=== PATIENT | male | born 1960 | race Caucasian/White ===

== ENCOUNTER 2017-11-10 16:15 | Outpatient (RCR) | payer OTHER ==
--- NOTE | 2017-11-03 13:07 | PT INITIAL EVALUATION ---
MEDICAL DIAGNOSIS: Dizziness TREATMENT DIAGNOSIS: BPPV, Vertigo DATE OF ONSET: 11/02/17 SUBJECTIVE: Desean is a 57 year-old male presenting to physical therapy following a 2 year history of occasional dizziness and vertigo. Pt reports that sometimes it it positionally related, but other times it can occur simply at rest. Pt occasionally has a ringing in his L ear as well. Pt reports that overall the dizziness comes and goes, but increases with activities such as tying shoes. He reports no nausea with dizziness. REHAB PROBLEM LIST: Impaired Transfers Decreased Balance Decreased ADL's Decreased Mobility PREVIOUS MEDICAL HISTORY: See EMR OBJECTIVE: Visual tracking intact without nystagmus. Pt has no nystagmus at rest. Sensation: No change in facial sensation Special Tests: Vertebral Artery test B (-) Mobility: Dizziness with transfers from supine<>seated Gait: No abnormality of gait or slowed speed. Balance: [place] Hallpike R (-), L (+) Other Objective Findings: Dizziness Handicap Inventory (DHI): ASSESSMENT: Pt shows signs and symptoms consistent with left sided BPPV. Physical therapy is indicated to treat the above listed deficits to improve pt function with ADL's. Short Term Goals In 2 weeks pt will have no reports of dizziness with changed in position or ADL 's. In 2 weeks pt will improve DHI score to 8 or less for improved functional ability to perform ADL's. Patient's Goals Decrease dizziness PLAN: Patient to be seen for Spinal Stabilization Neuromuscular Re-ed Posture/Body mechanics Gait Trg/Balance Trg Home Exercise Program Therapeutic Activities 1x/Week for 2-4 Weeks If you have any questions, comments, or concerns about this report or plan, please contact me at . Thank you, Gay Hardy, PT, DPT, CLT MTDD
[~2017-11-10 16:15] MED LIST: ASPI-1471 PO; MECL25TA9 PO; METO-257 PO; METO25TA93 PO; MOMR ENA; RIVA20TA PO
--- NOTE | 2017-11-10 16:59 | PT PLAN OF CARE ---
Physician: SANTOSH Whitman Patient is being seen: 1x/Week Therapist: Gay Hardy, PT, DPT, CLT Medical Diagnosis: Dizziness Treatment Diagnosis: BPPV, Vertigo Date of Onset: 11/02/17 Date of Initial Evaluation: 11/02/17 Date patient was last seen: 11/10/17 Number of treatments: 2 Number of cancellations/No shows: 0 INTERVENTIONS: Spinal Stabilization Neuromuscular Re-ed Posture/Body mechanics Gait Trg/Balance Trg Home Exercise Program Therapeutic Activities GOALS: In 2 weeks pt will have no reports of dizziness with changed in position or ADL' s. In 2 weeks pt will improve DHI score to 8 or less for improved functional ability to perform ADL's. PATIENT'S GOAL: Decrease dizziness Status of Patient's Goals: 2/2 MET Patient Compliance: Excellent Prognosis: Good Reasons for discharge from therapy: Desean is to discharge from physical therapy at this time secondary to completion of 2/2 functional goals. At the time of discharge pt reports no dizziness with ADL's except occasional onset of dizziness with quick lateral head movements which resolves quickly. Pt is compliant with HEP and is to follow up with PT if any further symptoms arise. Sensation: No change in facial sensation Special Tests: Vertebral Artery test B (-) Gait: No abnormality of gait or slowed speed. Other Objective Findings: Dizziness Handicap Inventory (DHI): If you have any questions, comments, or concerns about this report or plan, please contact me at . Thank you, Gay Hardy, PT, DPT, CLT [facility]
== END 2017-11-10 18:00 | disposition home or self-care (01) ==
LOC: PT 16:15
PROVIDERS: ATTEND Physician Assistant Medical
DX: H81.10 Benign paroxysmal vertigo, unspecified ear (principal); H93.12 Tinnitus, left ear
CPT/HCPCS: 97161

== ENCOUNTER 2018-05-04 20:55 | Emergency (ER) | payer OTHER ==
--- NOTE | 2018-05-04 20:58 | ER Report ---
History and Physical Time Seen By MD: 20:56 HPI/ROS CHIEF COMPLAINT: Palpitations, chest ache HISTORY OF PRESENT ILLNESS: 57-year-old male with a brief episode of palpitations at 6 PM. Later developed chest ache. Without associated symptoms. Patient denies diaphoresis, shortness of breath or nausea. Patient has a known history of atrial fibrillation back in 2013. Patient was seen in 2016 with atrial fibrillation. He was started on metoprolol and Xarelto. Patient spontaneously converted. He is followed by cardiology in [place]. Patient remains on metoprolol 50 mg twice a day and aspirin 81 mg per day. Patient notes no recent illness, URI cough sore throat fever or chills. Patient denies leg swelling or calf pain. Patient notes no exacerbating or alleviating factors. This chest pain. He denies GERD symptoms. REVIEW OF SYSTEMS: Respiratory: No cough, no dyspnea. Cardiovascular: As above Gastrointestinal: No vomiting, no abdominal pain. Musculoskeletal: No back pain. Allergies: Coded Allergies: No Known Drug Allergies (Unverified , 05/04/18) Home Meds Reported Medications Aspirin (ASPIR 81) 81 Mg Tablet.dr, 81 MG PO QDAY, TAB 05/04/18 Metoprolol Tartrate (METOPROLOL TARTRATE) 25 Mg Tablet, 1 TAB PO QDAY, TAB 09/20/15 Reviewed Nurses Notes: Yes Old Medical Records Reviewed: Yes Hx Smoking: No Smoking Status: Never Smoker Exposure to Second Hand Smoke?: No Constitutional Vital Sign - Last 24 Hours 05/04/18 05/04/18 05/04/18 05/04/18 20:57 21:00 21:17 21:30 Temp 97.8 Pulse 90 87 75 73 Resp 16 32 14 B/P (MAP) 136/107 149/98 (115) 124/88 (100) 118/77 (91) Pulse Ox 95 94 92 92 O2 Delivery Room Air Physical Exam Vital signs stable, afebrile, pulse ox normal General Appearance: The patient is alert, has no immediate need for airway protection and no current signs of toxicity. Skin warm, dry, pink HEENT: Pupils equal and round no injection. Respiratory: Chest is non tender, lungs are clear to auscultation., Mild chest wall tenderness with firm compression Cardiac: regular rate and rhythm Gastrointestinal: Abdomen is soft and non tender, no masses, bowel sounds normal. Musculoskeletal: Neck: Neck is supple and non tender. Extremities have full range of motion and are non tender. No edema, no calf tenderness Skin: No rashes or lesions. DIFFERENTIAL DIAGNOSIS: After history and physical exam differential diagnosis was considered for chest pain including but not limited to myocardial ischemia, pericarditis pulmonary embolus, chest wall pain, pleural inflammation and pulmonary infectious causes. Medical Decision Making Data Points Result Diagram: 05/04/18210405/04/182104 Laboratory Hematology Test 05/04/18 21:05 Red Blood Count 5.25 M/uL (4.00-5.60) Mean Corpuscular Volume 89.9 fL (80.0-96.0) Mean Corpuscular Hemoglobin 31.7 pg (26.0-33.0) Mean Corpuscular Hemoglobin Concent 35.3 g/dL (32.0-36.0) Red Cell Distribution Width 13.0 % (11.5-14.5) Mean Platelet Volume 9.0 fL (7.2-11.1) Neutrophils (%) (Auto) 48.4 % (39.4-72.5) Lymphocytes (%) (Auto) 36.4 % (17.6-49.6) Monocytes (%) (Auto) 11.4 % (4.1-12.4) Eosinophils (%) (Auto) 2.6 % (0.4-6.7) Basophils (%) (Auto) 1.2 % (0.3-1.4) Nucleated RBC Relative Count (auto) 0.0 /100WBC Neutrophils # (Auto) 3.6 K/uL (2.0-7.4) Lymphocytes # (Auto) 2.7 K/uL (1.3-3.6) Monocytes # (Auto) 0.8 K/uL (0.3-1.0) Eosinophils # (Auto) 0.2 K/uL (0.0-0.5) Basophils # (Auto) 0.1 K/uL (0.0-0.1) Nucleated RBC Absolute Count (auto) 0.00 K/uL D-Dimer Quantitative (PE/DVT) < 0.27 ug/ml (0-0.50) Sodium Level 139 mmol/L (137-145) Potassium Level 4.0 mmol/L (3.5-5.0) Chloride Level 105 mmol/L (98-107) Carbon Dioxide Level 25 mmol/L (22-30) Blood Urea Nitrogen 18 mg/dl (9-21) Creatinine 1.30 mg/dl (0.66-1.25) Glomerular Filtration Rate Calc 57.3 Random Glucose 86 mg/dl (75-110) Calcium Level 8.9 mg/dl (8.4-10.2) Total Bilirubin 1.5 mg/dl (0.2-1.3) Aspartate Amino Transf (AST/SGOT) 25 U/L (0-35) Alanine Aminotransferase (ALT/SGPT) 31 U/L (0-56) Alkaline Phosphatase 106 U/L (0-126) Troponin I < 0.012 ng/ml Total Protein 7.1 g/dl (6.3-8.2) Albumin 4.0 g/dl (3.5-5.0) Chemistry Test 05/04/18 21:05 White Blood Count 7.3 k/uL (4.5-11.0) Red Blood Count 5.25 M/uL (4.00-5.60) Hemoglobin 16.7 g/dL (14.0-18.0) Hematocrit 47.2 % (42.0-52.0) Mean Corpuscular Volume 89.9 fL (80.0-96.0) Mean Corpuscular Hemoglobin 31.7 pg (26.0-33.0) Mean Corpuscular Hemoglobin Concent 35.3 g/dL (32.0-36.0) Red Cell Distribution Width 13.0 % (11.5-14.5) Platelet Count 218 K/uL (150-450) Mean Platelet Volume 9.0 fL (7.2-11.1) Neutrophils (%) (Auto) 48.4 % (39.4-72.5) Lymphocytes (%) (Auto) 36.4 % (17.6-49.6) Monocytes (%) (Auto) 11.4 % (4.1-12.4) Eosinophils (%) (Auto) 2.6 % (0.4-6.7) Basophils (%) (Auto) 1.2 % (0.3-1.4) Nucleated RBC Relative Count (auto) 0.0 /100WBC Neutrophils # (Auto) 3.6 K/uL (2.0-7.4) Lymphocytes # (Auto) 2.7 K/uL (1.3-3.6) Monocytes # (Auto) 0.8 K/uL (0.3-1.0) Eosinophils # (Auto) 0.2 K/uL (0.0-0.5) Basophils # (Auto) 0.1 K/uL (0.0-0.1) Nucleated RBC Absolute Count (auto) 0.00 K/uL D-Dimer Quantitative (PE/DVT) < 0.27 ug/ml (0-0.50) Glomerular Filtration Rate Calc 57.3 Calcium Level 8.9 mg/dl (8.4-10.2) Total Bilirubin 1.5 mg/dl (0.2-1.3) Aspartate Amino Transf (AST/SGOT) 25 U/L (0-35) Alanine Aminotransferase (ALT/SGPT) 31 U/L (0-56) Alkaline Phosphatase 106 U/L (0-126) Troponin I < 0.012 ng/ml Total Protein 7.1 g/dl (6.3-8.2) Albumin 4.0 g/dl (3.5-5.0) Coagulation Test 05/04/18 21:05 D-Dimer Quantitative (PE/DVT) < 0.27 ug/ml EKG/Imaging EKG Interpretation 12 lead EK Rhythm: normal sinus rhythm [place]: normal QRS: normal ST segments: normal, comparison to previous EKG dated 06/21/16, no significant change Imaging X-ray: Two-view chest x-ray was obtained. I viewed the images myself on the PACS system. My interpretation of the images is: No infiltrate, no effusion, normal mediastinum, comparison to previous chest x-ray dated 07/04/14. [The radiologist interpretation had no clinically significant variation from this interpretation]. ED Course/Re-evaluation Clinical Indication for ER IV: IV Access ED Course Patient was admitted to an examination room. H&P was done. The differential diagnosis was considered. On clinical examination. Patient has some reproducible chest pain. Patient has no associated symptoms. He sounds like he might of been briefly in atrial fibrillation earlier this evening. Patient's is been taking his aspirin 81 mg per day. His rate controlled on the awake overnight monitor. An EKG is performed which is unremarkable and normal. Compared to old EKG is unchanged. Patient's troponin and d-dimer were unremarkable. His chest x-rays and change. Patient has no symptoms currently. Patient was worried he may be having a cardiac event. Patient advised to follow-up with his primary care or ordained minister if his symptoms persist. Decision to Disposition Date: May 04, 2018 Decision to Disposition Time: 21:40 Depart Departure Latest Vital Signs Vital Signs Date Time Temp Pulse Resp B/P (MAP) Pulse Ox O2 Delivery O2 Flow Rate FiO2 05/04/18 21:30 73 14 118/77 (91) 92 05/04/18 20:57 97.8 Room Air Impression: Primary Impression: Chest pain Condition: Improved Disposition: HOME OR SELF-CARE Patient Instructions: Chest Pain (ED) Additional Instructions: Follow-up with your primary care or your ordained minister if symptoms persist Return to the ER for any worsening Problem Qualifiers Primary Impression: Chest pain Chest pain type: unspecified Qualified Codes: R07.9 - Chest pain, unspecified MARY HOOVER DO May 04, 2018 20:58
[2018-05-04] MEDS ORDERED: ASPI-1471 PO (21:01)
--- NOTE | 2018-05-04 21:10 | EKG ---
FACILITY[place] [facility] [place]IENT NAME: RENETTA NIEVES : [id number] MR: [id number] V: [id number] EXAM DATE: ORDERING PHYSICIAN: MARY HOOVER TECHNOLOGIST: BIRDIE Test Reason : CARDIAC Blood Pressure : / mmHG Vent. Rate : 082 BPM Atrial Rate : 082 BPM P-R Int : 140 ms QRS Dur : 100 ms QT Int : 372 ms P-R-T Axes : 045 045 054 degrees QTc Int : 434 ms Normal sinus rhythm Normal ECG When compared with ECG of 21-JUN-2016 08:15, No significant change was found Confirmed by VERONIQUE PANCHAL ([id number]) on 05/05/2018 6:45:43 AM Referred By: Confirmed By:VERONIQUE PANCHAL
[2018-05-04 21:16] LABS: PLATELET COUNT, AUTOMATED 218 K/uL (150-450)
[2018-05-04 21:30] VITALS: BP 118/77
--- NOTE | 2018-05-04 21:37 | RADIOLOGY IMAGING REPORT ---
FACILITY: [facility] PATIENT NAME: Desean West : 1960 MR: [id number] V: [id number] EXAM DATE: ORDERING PHYSICIAN: MARY HOOVER TECHNOLOGIST: Location: Patient: Desean West : 1960 Visit/Account:[id number] Date of Sevice: 05/04/2018 TWO VIEW CHEST 05/04/2018 9:04 PM. INDICATION: Chest Pain COMPARISON: 07/04/2014. FINDINGS: Lungs are well-expanded. There is a new nodular density projecting over the left lung base on the PA image measuring 7 mm in diameter. Lungs are otherwise clear. No pneumothorax or pleural effusion. Pulmonary vasculature is unremarkable. Heart size is normal. IMPRESSION: Nonspecific 7 mm nodular density projecting over the left lung base. This could represen t overlapping shadows, but underlying parenchymal nodule or focal infection not excluded. Consider 1 -3 month follow-up versus further evaluation with CT. Otherwise unremarkable Report Dictated By: Eduardo Monahan MD at 05/04/2018 9:31 PM Report E-Signed By: Eduardo Monahan MD at 05/04/2018 9:34 PM WSN:[id number]
== END 2018-05-04 21:46 | disposition home or self-care (01) ==
LOC: ER 21:24
DX: R07.9 Chest pain, unspecified (principal)
CPT/HCPCS: 71046; 82040; 82247; 82310; 82374; 82435; 82565; 82947; 84075; 84132; 84155; 84295; 84450; 84460; 84484; 84520; 85025; 85379; 93005; 99284

== ENCOUNTER 2018-08-30 07:00 | Outpatient (RCR) | payer OTHER ==
--- NOTE | 2018-08-24 09:33 | PT INITIAL EVALUATION ---
MEDICAL DIAGNOSIS: BPPV TREATMENT DIAGNOSIS: Same DATE OF ONSET: 08/10/18 SUBJECTIVE: Desean West presents to physical therapy with complaints of dizziness and mild dull head ache that is consistent with head turning, looking up, and lay down quickly. He reports that he was in a mild snowboard accident in which he hit his head; however, he reports that he was wearing a helmet. He denies any loss of consciousness. He reports that he was treated for BPPV last October in which it got better quickly. REHAB PROBLEM LIST: Decreased Balance Decreased Function Decreased ADL's PREVIOUS MEDICAL HISTORY: See EMR OCCUPATION: [employer] OBJECTIVE: Special Tests: Special Tests: (-) OCULOMOTOR/VESTIBULAR TESTING: Spontaneous Nystagmus: Absent VOR Head Thrust (horizontal canal function): R: ?, L: ? (will test next session) Gaze-Evoked Nystagmus with fixation present:Absent VOR Head Thrust (posterior canal function): R: Positive, L: Positive Posterior Horizontal Head-Shaking Nystagmus ( - ) Gaze-Evoked Nystagmus with fixation suppressed: absent Smooth Pursuit Saccades VOR Cancellation: Normal POSITIONING TEST: Left Hallpike + Right Hallpike + Roll Test + / - (did not test will test next session) Mobility: Independent Gait: He demonstrated normal gait mechanics ASSESSMENT: Rudy will benefit from skilled physical therapy addressing the listed impairments to return to prior level of function. Following the examination, it appears that he has BPPV (positional vertigo) in B posterior canals; however, we treated the R canal and will treat the L canal the next session and then will check the horizontal canal after the posterior canals have resolved in 2-3 sessions. Short Term Goals 2 weeks: Pt will be able to turn his head quickly, lay down quickly, and look up without any dizziness to improve function and QOL. 2 weeks: Pt will be independent with HEP. Patient's Goals get rid of dizziness PLAN: Patient to be seen for Neuromuscular Re-ed Gait Trg/Balance Trg 2x/Week for 2 Weeks If you have any questions, comments, or concerns about this report or plan, please contact me at . Thank you, Karson Best, PT, DPT RISHI
== END 2018-08-30 18:00 | disposition home or self-care (01) ==
LOC: PT 07:00
PROVIDERS: ATTEND Family Medicine
DX: H81.10 Benign paroxysmal vertigo, unspecified ear (principal)
CPT/HCPCS: 97161

== ENCOUNTER 2018-11-26 08:15 | Outpatient (RCR) | payer OTHER ==
--- NOTE | 2018-11-18 07:44 | PT INITIAL EVALUATION ---
MEDICAL DIAGNOSIS: Dizziness TREATMENT DIAGNOSIS: Dizziness, BPPV DATE OF ONSET: 11/18/18 SUBJECTIVE: Desean is a 58 year-old male presenting to physical therapy following a 2 year history of occasional dizziness and vertigo. Pt reports that sometimes it it positionally related, but other times it can occur simply at rest. Pt reports that overall the dizziness comes and goes, but increases with activities such as reclining back and turning quickly in the kitchen. He reports no nausea with dizziness. REHAB PROBLEM LIST: Impaired Transfers Decreased Balance Decreased ADL's Decreased Mobility PREVIOUS MEDICAL HISTORY: See EMR OBJECTIVE: Pt has no nystagmus at rest. Lateral gaze nystagmus is present bilaterally. Sensation: No change in facial sensation Special Tests: Vertebral Artery test B (-) Mobility: Dizziness with transfers from supine<>seated Gait: No abnormality of gait or slowed speed. Balance: [place] Hallpike R (+), L (not tested at this time secondary to treatment of R) ASSESSMENT: Pt shows signs and symptoms consistent with right sided BPPV. Physical therapy is indicated to treat the above listed deficits to improve pt function with ADL's. Short Term Goals In 2 weeks pt will have no reports of dizziness with changed in position or ADL's. In 2 weeks pt will be compliant with HEP for neural re-education for prolonged management of dizziness with ADL's. Patient's Goals Decrease dizziness PLAN: Patient to be seen for Spinal Stabilization Neuromuscular Re-ed Posture/Body mechanics Gait Trg/Balance Trg Home Exercise Program Therapeutic Activities 1x/Week for 2-4 Weeks If you have any questions, comments, or concerns about this report or plan, please contact me at . Thank you, Gay Hardy, PT, DPT, CLT Referring Provider Signature: Date: MTDD
--- NOTE | 2018-11-26 08:35 | PT PLAN OF CARE ---
Physician: Brandon Weaver MD Patient is being seen: 2x/Week Therapist: Gay Hardy, PT, DPT, CLT Medical Diagnosis: Dizziness Treatment Diagnosis: BPPV Date of Onset: 11/18/18 Date of Initial Evaluation: 11/18/18 Date patient was last seen: 11/26/18 Number of treatments: 3 Number of cancellations/No shows: 0 INTERVENTIONS: Spinal Stabilization Neuromuscular Re-ed Posture/Body mechanics Gait Trg/Balance Trg Home Exercise Program Therapeutic Activities Short Term Goals In 2 weeks pt will have no reports of dizziness with changed in position or ADL's. In 2 weeks pt will be compliant with HEP for neural re-education for prolonged management of dizziness with ADL's. Patient's Goals Decrease dizziness Status of Patient's Goals: 2/2 MET Patient Compliance: Good Prognosis: Good Reasons for discharge from therapy: Desean is to discharge from physical therapy at this time secondary to completion of 2/2 functional goals. At the time of discharge pt shows no symptoms of dizziness with good function with ADL's. Pt started on gaze stabilization exercises to improve neuromotor coordination between inner ear and vision with frequent recurrence. Upon discharge pt is to continue with HEP if symptoms recur and seek PT if they maintain presence. OBJECTIVE: Pt has no nystagmus present. Sensation: No change in facial sensation Balance: No dizziness is noted If you have any questions, comments, or concerns about this report or plan, please contact me at . Thank you, Gay Hardy, PT, DPT, CLT [facility]
== END 2018-11-26 18:00 | disposition home or self-care (01) ==
LOC: PT 08:15
PROVIDERS: ATTEND Family Medicine
DX: R42 Dizziness and giddiness (principal)
CPT/HCPCS: 97161